=== PATIENT | male | born 1990 | race Caucasian/White ===

== ENCOUNTER 2018-01-07 02:54 | Emergency (ER) | payer OTHER ==
[2018-01-07] MEDS: DIPHTH/TET/ACEL PERTUSS (ADULT) 0.5 ML VIAL IM* (04:03)
[2018-01-07] MEDS: HYDROmorphONE 2 MG/ML SYG IM (04:04)
== END 2018-01-07 06:10 | disposition home or self-care (01) ==
LOC: E/R 06:10
DX: S83.015A Lateral dislocation of left patella, initial encounter (principal); S00.03XA Contusion of scalp, initial encounter; S83.92XA Sprain of unspecified site of left knee, initial encounter; J45.909 Unspecified asthma, uncomplicated; W01.0XXA Fall on same level from slipping, tripping and stumbling without subsequent striking against object, initial encounter; Y92.9 Unspecified place or not applicable; Z87.891 Personal history of nicotine dependence; Z23 Encounter for immunization
CPT/HCPCS: 27560; 70450; 70486; 73562; 90471; 90715; 96372; 99285-25